=== PATIENT | female | born 1990 | race Caucasian/White ===

== ENCOUNTER → 2017-04-11 | Outpatient (CLI) | payer MEDICAID ==
--- NOTE | 2017-04-11 14:58 | USB ---
Reason for exam: clinical finding. History: Family history of breast cancer in paternal grandmother at age 73. Physical Findings: Nurse Summary: Patient complains of left breast pain upper outer quadrant x 6 weeks (nurse mj). US Breast LT Left breast ultrasound includes all four quadrants, the retroareolar region and axilla. Finding demonstrates a 8 x 3 x 5mm oval, cystic lesion at 3 o'clock. These results were verbally communicated with the patient and result sheet given to the patient on 04/11/17. ASSESSMENT: Benign, BI-RAD 2 RECOMMENDATION: Routine screening mammogram of both breasts at age 42. (or sooner if clinically indicated)
== END | disposition home or self-care (01) ==
LOC: RADUSWWP 13:48
PROVIDERS: ATTEND Obstetrics & Gynecology
DX: N60.02 Solitary cyst of left breast (principal)